=== PATIENT | female | born 1990 | race Caucasian/White ===

== ENCOUNTER → 2024-02-16 10:57 | Outpatient (CLI) | payer OTHER, SELFPAY ==
[2024-02-16 13:03] LABS: Hematocrit 30.7 % (36-46); Hemoglobin 10.6 g/dL (12.0-16.0)
[2024-02-16 13:43] LABS: GTT (PREG) 1 Hour PP 50gm Dose 136 mg/dL (76-139)
== END ==
PROVIDERS: PCP Nurse Practitioner Family; Referring Provider Obstetrics & Gynecology; Visit Provider Obstetrics & Gynecology
DX: Z34.02 Encounter for supervision of normal first pregnancy, second trimester (principal)
CPT/HCPCS: 36415; 82950; 85014; 85018

== ENCOUNTER 2024-02-23 13:41 | Observation (INO) | payer OTHER, SELFPAY ==
--- NOTE | 2024-02-23 14:33 | DI.US.S_ITS ---
PROCEDURE: US ABDOMEN LIMITED INDICATIONS: Gallbladder TECHNIQUE: Real-time focused scanning was performed of the abdomen, with image documentation. COMPARISON: None. FINDINGS: The gallbladder is normal without stones, sludge, wall thickening, or pericholecystic fluid. The visible portion of the liver, biliary tree, and pancreas are normal. Incidental note of intrauterine with heart rate of 147 beats per minute. IMPRESSION: Normal gallbladder. Dictated by: Octavia Gaines M.D. on 02/23/2024 at 18:27 Approved by: Octavia Gaines M.D. on 02/23/2024 at 18:28
[2024-02-23 15:04] LABS: Add Manual Diff / Slide Review NO; Basophils Absolute Auto 0 /uL (0-100); Basophils Percent Auto 0.2 % (0-2); Eosinophils Absolute Auto 0 /uL (0-450); Eosinophils Percent Auto 0.4 % (2-4); Hematocrit 32.9 % (36-46); Hemoglobin 11.6 g/dL (12.0-16.0); Lymphocytes Absolute Auto 600 /uL (1100-4500); Mean Corpuscular HGB Conc 35.2 % (30-36); Mean Corpuscular Hemoglobin 31.3 PG (26-34); Mean Corpuscular Volume 88.8 fL (80-100); Monocytes Absolute Auto 700 /uL (0-900); Monocytes Percent Auto 7.3 % (3-14); Neutrophils Absolute Auto 7900 /uL (1500-7000); Neutrophils Percent Auto 86.1 % (50-75); Platelet Count 288 X10^3/uL (150-400); Red Cell Distribution Width 13.6 % (11.6-14.8); White Blood Cell Count 9.2 X10^3/uL (4.5-11.0)
[2024-02-23 15:19] LABS: Alanine Aminotransferase 45 IU/L (<35); Albumin 3.8 g/dL (3.5-5.0); Albumin Globulin Ratio 1.2 (1.0-2.8); Alkaline Phosphatase 110 U/L (38-126); Aspartate Aminotransferase 36 IU/L (14-36); BUN Creatinine Ratio 10.6 (6-22); Bilirubin Total 0.8 mg/dL (0.2-1.3); Blood Urea Nitrogen 5 mg/dL (7-17); Calcium 8.4 mg/dL (8.4-10.2); Carbon Dioxide 23 mmol/L (22-32); Chloride 107 mmol/L (98-107); Estimated Glomerular Filt Rate > 60 mL/min (>60); Globulin 3.2 g/dL (1.7-4.1); Glucose 90 mg/dL (70-100); HEMOLYSIS < 15 (0-50); Potassium 3.6 mmol/L (3.4-5.1); Sodium 137 mmol/L (137-145)
[2024-02-23 15:23] LABS: Creatinine Urine Random 100.85 mg/dL; Protein (Total) Urine Random 12 mg/dL (0-12); Protein Creatinine Ratio Urine 0.11 GRAM/24H
[2024-02-23] MEDS: LACTATED RINGERS 1,000 ML 1000 ML IV (17:04)
== END 2024-02-23 18:15 | disposition home or self-care (01) ==
PROVIDERS: Admitting Provider Obstetrics & Gynecology; PCP Nurse Practitioner Family; Referring Provider Obstetrics & Gynecology; Visit Provider Obstetrics & Gynecology
DX: O26.853 Spotting complicating pregnancy, third trimester (principal); O26.893 Other specified pregnancy related conditions, third trimester; R10.11 Right upper quadrant pain; Z3A.29 29 weeks gestation of pregnancy
CPT/HCPCS: 59025; 59050; 76705; 80053; 82570; 84156; 85025; 96360; G0378; G0379

== ENCOUNTER 2024-02-25 17:03 | Observation (INO) | payer OTHER, SELFPAY ==
[2024-02-25 17:41] LABS: Add Manual Diff / Slide Review NO; Basophils Absolute Auto 0 /uL (0-100); Basophils Percent Auto 0.5 % (0-2); Eosinophils Absolute Auto 100 /uL (0-450); Eosinophils Percent Auto 0.8 % (2-4); Hemoglobin 11.1 g/dL (12.0-16.0); Lymphocytes Absolute Auto 1200 /uL (1100-4500); Mean Corpuscular HGB Conc 34.9 % (30-36); Mean Corpuscular Hemoglobin 31.4 PG (26-34); Mean Corpuscular Volume 90.1 fL (80-100); Monocytes Absolute Auto 700 /uL (0-900); Monocytes Percent Auto 9.3 % (3-14); Neutrophils Absolute Auto 5600 /uL (1500-7000); Neutrophils Percent Auto 73.4 % (50-75); Platelet Count 293 X10^3/uL (150-400); Red Blood Cell Count 3.55 X10^6/uL (4.0-5.2); Red Cell Distribution Width 13.3 % (11.6-14.8); White Blood Cell Count 7.6 X10^3/uL (4.5-11.0)
[2024-02-25 17:44] LABS: Alanine Aminotransferase 59 IU/L (<35); Albumin 3.8 g/dL (3.5-5.0); Albumin Globulin Ratio 1.1 (1.0-2.8); Alkaline Phosphatase 109 U/L (38-126); Aspartate Aminotransferase 43 IU/L (14-36); BUN Creatinine Ratio 13.3 (6-22); Bilirubin Total 0.6 mg/dL (0.2-1.3); Blood Urea Nitrogen 6 mg/dL (7-17); Calcium 8.9 mg/dL (8.4-10.2); Carbon Dioxide 24 mmol/L (22-32); Chloride 108 mmol/L (98-107); Estimated Glomerular Filt Rate > 60 mL/min (>60); Globulin 3.5 g/dL (1.7-4.1); Glucose 80 mg/dL (70-100); HEMOLYSIS < 15 (0-50); Potassium 3.7 mmol/L (3.4-5.1); Sodium 135 mmol/L (137-145); Total Protein 7.3 g/dL (6.3-8.2)
[2024-02-25] MEDS: BETAMETHASONE 30 MG/5 ML MDV 12 MG IM (18:36)
--- NOTE | 2024-02-25 18:43 | PM.OBTRLD ---
Visit Information Visit Information Date of evaluation: 02/25/24 Primary OB Provider: Mirlande Morton On-call OB Provider: Mirlande Morton Reason for Evaluation: Yes pre-term labor Comments/Additional reasons for admission: 33yo G1 at 29w3d D=9wk US presents to triage for evaluation of persistent vaginal spotting with increasing lower abdominal cramping Patient was last seen in triage on 02/22 for evaluation of RUQ pain thought at that time to be related to cholestasis. Noted isolated elevation in ALT (45) however all other labs returned wnl. RUQ at that time without evidence of cholelithiasis however + sonographic Castillo's sign. Provider was not informed of c/o vaginal bleeding at time of this encounter and patient was discharged to home with strict precautions. Pt secondarily called on-call provider 02/23 with c/o passage of a single large dark brown clot post-void, no further cramping. Pt instructed to monitor closely, FKC and call if any additional spotting or concerns. Pt contacted on-call provider this afternoon with c/o increasing vaginal discharge and persistent vaginal spotting that started immediately prior to calling, worsening lower pelvic bathroom type cramps. Pt was instructed to present to L&D triage for interval re-evaluation. On arrival pt NAD, cat 1 tracing however noted regular contractions q3min per tocometry. Repeat PIH labs obtained and IVF hydration initiated. On MD bedside transabdominal US ntoed zaman fetus in cephalic presentation, MVP 4.8cm. Possible echoic shadowing of lateral anterior placental edge however limited interpretation. Character of amniotic fluid simple without echogenic debris. Excellent movement and tone noted throughout. Sterile speculum exam significant for prolapsed membranes, 2cm visually dilated without evidence of PPROM. Interval PIH labs significant for progressive elevation in LFTs however still less than 2x normal Vital Signs Vital Signs: BP 108/83 HR 85 PFSH Medical History (Updated 02/25/24 @ 19:39 by Mirlande Morton MD) Transaminitis labor Chronic constipation Infertility Normal colonoscopy Surgical History (Updated 01/16/24 @ 09:42 by Ashley Bishop, RN) History of laparoscopy History of oral surgery Family History (Updated 01/16/24 @ 09:48 by Ashley Bishop, RN) Grandmother Diabetes mellitus Hypertension Hyperlipidemia Grandfather Alcoholism Father Adopted Grandmother Parkinson's disease Benign brain tumor Mother Thyroid disorder Father Prostate cancer Esophageal cancer Skin cancer Aunt Pre-diabetes Aunt Anemia Family/Other Rheumatoid arthritis Social History marital status: number of children: 1 (adopted son) household members: spouse and children lives independently: Yes caregiver/support person: Yes housing: house pets and animals: Yes (dogs) education level: college (bachelor's degree) occupational status: employed (works from home) current occupational exposures/hazards: No special amadou needs: No travel history: recent (domestic only) seatbelt use: always helmet use: No (counseled to do so in future) water heater temp set < 120 deg: Yes working smoke detector in home: Yes fire extinguisher in home: Yes carbon monox detector in home: Yes firearms in home: Yes firearms unloaded and locked: Yes do you feel safe at home: Yes Smoking Status: Never smoker second hand exposure: No alcohol intake: former (0-1/week when not ) substance use type: does not use during the past year weight has: remained stable well-balanced diet: daily or most days daily servings fruits/ve or more times/day caffeine: Yes (1 cup decaf or regular coffee in AM) Type(s) of exercise: walking frequency: 5-6 times per week Review of Systems Review of Systems ROS: Yes All systems reviewed with the patient and are negative except as otherwise documented Exam Vital Signs (past 8 hours): 138/78 HR 92 Const General: cooperative and well developed Nutritional Appearance: average body habitus Orientation: alert, awake and oriented x3 HENMT Head: normal to inspection Eyes General: appearance normal, both eyes and all related structures Resp Effort & Inspection: normal respiratory effort Auscultation: clear to auscultation bilaterally Cardio Rate: regular rate Pulses: normal peripheral pulses GI Other: gravid abdomen, size approx dates mild TTP RUQ without guarding or rebound, equivocal Castillo Other: normal external female genitalia perineum and anus without rash or lesion urethral meatus wnl vaginal vault grossly wnl without evidence of pooling cervix visually dilated 2cm, prolapsing membranes noted Skin General: no rashes or lesions noted Neuro General: patient alert, patient awake and patient oriented x3 Extrem General: normal to inspection Psych Appearance: grossly normal Mental Status: mental status grossly normal Speech and Movement: speech and movement normal Judgment: judgment good Objective Labs 02/25/24 17:25 02/25/24 17:25 Labs: Laboratory Results - last 24 hr 02/25/24 17:25 WBC 7.6 RBC 3.55 L Hgb 11.1 L Hct 32.0 L MCV 90.1 MCH 31.4 MCHC 34.9 RDW 13.3 Plt Count 293 Neut % (Auto) 73.4 Lymph % (Auto) 16.0 L [place] % (Auto) 9.3 Eos % (Auto) 0.8 L Baso % (Auto) 0.5 Neut # (Auto) 5600 Lymph # (Auto) 1200 [place] # (Auto) 700 Eos # (Auto) 100 Baso # (Auto) 0 Sodium 135 L Potassium 3.7 Chloride 108 H Carbon Dioxide 24 BUN 6 L Creatinine 0.45 L Estimated GFR > 60 BUN/Creatinine Ratio 13.3 Glucose 80 Calcium 8.9 Total Bilirubin 0.6 AST 43 H ALT 59 H Alkaline Phosphatase 109 Total Protein 7.3 Albumin 3.8 Globulin 3.5 Albumin/Globulin Ratio 1.1 Evaluation Evaluation Baseline heart rate: 135 Variability: Average (6-10) monitor accelerations: Present Monitor Decelerations: Absent Contraction Frequency (minutes): 5 Uterine Contraction Intensity: Moderate Category of Tracing: Reactive Status: Category l Cervical dilation (cm): 2 Non-invasive Membranes Rupture Test: negative Diagnosis, Plan/Disposition Final Diagnosis (1) labor: Status: Acute (2) Transaminitis: Status: Acute Plan/Disposition Plan: 33yo G1 at 29w3d d=9wk US presents in early labor, mild transaminitis concerning for developing HELLP syndrome Early labor cat 1 tracing, exam inconsistent with PPROM/abruption however visually dilated with prolapsing membranes start magnesium 6g loading dose +2g/h thereafter for both neuroprotection and transportation to[place]ysis ampicillin 2g now BMZ x1 given transfer to tertiary care center initiated Transaminitis NOS, concern for developing HELLP syndrome in setting of worsening RUQ pain, unable to exclude developing HELLP continue to monitor Dispo: pt accepted for transfer to tertiary center ([facility], Dr. Della Colbert), plan for ACLS air-transfer given clinical acuity OB Disposition: tertiary care transfer ([facility])
[2024-02-25] MEDS: LACTATED RINGERS 1,000 ML 1000 ML IV (19:13)
[2024-02-25] MEDS: MAGNESIUM SULFATE 4 GM/100 ML PIGGYBACK IV (19:14)
[2024-02-25] MEDS: AMPICILLIN 2,000 MG in SODIUM CHLORIDE 0.9% 100 ML 200 MG IV (19:15)
[2024-02-25] MEDS: MAGNESIUM SULFATE 2 GM/50 ML PIGGYBACK IV (19:29)
[2024-02-25] MEDS: MAGNESIUM SULFATE 20 GM/500 ML IV.SOLN IV (19:40)
[2024-02-25 21:09] LABS: Strep Grp B PCR NEG for Grp B Strep
== END 2024-02-25 20:32 | disposition home or self-care (01) ==
PROVIDERS: Admitting Provider Obstetrics & Gynecology; PCP Nurse Practitioner Family; Referring Provider Obstetrics & Gynecology; Visit Provider Obstetrics & Gynecology
DX: O60.03 Preterm labor without delivery, third trimester (principal); O26.893 Other specified pregnancy related conditions, third trimester; R74.01 Elevation of levels of liver transaminase levels; Z3A.29 29 weeks gestation of pregnancy
CPT/HCPCS: 36415; 59025; 59050; 76815; 80053; 85025; 87653; 96360; 96361; 96372; G0378; G0379; J0290; J0702; J3475

== ENCOUNTER → 2024-03-05 09:07 | Outpatient (CLI) | payer OTHER, SELFPAY ==
[2024-03-05 09:53] LABS: Add Manual Diff / Slide Review NO; Basophils Absolute Auto 0 /uL (0-100); Basophils Percent Auto 0.4 % (0-2); Eosinophils Absolute Auto 100 /uL (0-450); Eosinophils Percent Auto 0.5 % (2-4); Hematocrit 32.6 % (36-46); Hemoglobin 11.4 g/dL (12.0-16.0); Lymphocytes Absolute Auto 1500 /uL (1100-4500); Lymphocytes Percent Auto 14.6 % (25-40); Mean Corpuscular HGB Conc 35.1 % (30-36); Mean Corpuscular Hemoglobin 31.2 PG (26-34); Mean Corpuscular Volume 88.8 fL (80-100); Monocytes Absolute Auto 900 /uL (0-900); Monocytes Percent Auto 8.9 % (3-14); Neutrophils Absolute Auto 7800 /uL (1500-7000); Neutrophils Percent Auto 75.6 % (50-75); Platelet Count 361 X10^3/uL (150-400); Red Blood Cell Count 3.67 X10^6/uL (4.0-5.2); Red Cell Distribution Width 13.4 % (11.6-14.8); White Blood Cell Count 10.4 X10^3/uL (4.5-11.0)
[2024-03-05 10:21] LABS: Alanine Aminotransferase 28 IU/L (<35); Albumin 3.7 g/dL (3.5-5.0); Albumin Globulin Ratio 1.1 (1.0-2.8); Alkaline Phosphatase 105 U/L (38-126); Aspartate Aminotransferase 18 IU/L (14-36); BUN Creatinine Ratio 19.6 (6-22); Bilirubin Total 0.4 mg/dL (0.2-1.3); Blood Urea Nitrogen 9 mg/dL (7-17); Calcium 9.2 mg/dL (8.4-10.2); Carbon Dioxide 25 mmol/L (22-32); Chloride 106 mmol/L (98-107); Estimated Glomerular Filt Rate > 60 mL/min (>60); Globulin 3.4 g/dL (1.7-4.1); Glucose 98 mg/dL (70-100); HEMOLYSIS < 15 (0-50); Potassium 4.4 mmol/L (3.4-5.1); Sodium 135 mmol/L (137-145); Total Protein 7.1 g/dL (6.3-8.2)
== END ==
PROVIDERS: PCP Nurse Practitioner Family; Referring Provider Obstetrics & Gynecology; Visit Provider Obstetrics & Gynecology
DX: R74.01 Elevation of levels of liver transaminase levels (principal)
CPT/HCPCS: 36415; 80053; 85025

== ENCOUNTER 2024-04-06 00:25 | Inpatient (IN) | payer OTHER, SELFPAY ==
[2024-04-06 02:22] LABS: Alanine Aminotransferase 13 IU/L (<35); Albumin 3.6 g/dL (3.5-5.0); Alkaline Phosphatase 167 U/L (38-126); Aspartate Aminotransferase 21 IU/L (14-36); BUN Creatinine Ratio 11.6 (6-22); Bilirubin Total 0.5 mg/dL (0.2-1.3); Blood Urea Nitrogen 5 mg/dL (7-17); Calcium 8.9 mg/dL (8.4-10.2); Carbon Dioxide 20 mmol/L (22-32); Chloride 110 mmol/L (98-107); Estimated Glomerular Filt Rate > 60 mL/min (>60); Globulin 3.6 g/dL (1.7-4.1); Glucose 92 mg/dL (70-100); HEMOLYSIS < 15 (0-50); Potassium 3.7 mmol/L (3.4-5.1); Sodium 135 mmol/L (137-145); Total Protein 7.2 g/dL (6.3-8.2)
[2024-04-06 02:28] LABS: Add Manual Diff / Slide Review NO; Basophils Absolute Auto 0 /uL (0-100); Basophils Percent Auto 0.4 % (0-2); Eosinophils Absolute Auto 0 /uL (0-450); Eosinophils Percent Auto 0.4 % (2-4); Hematocrit 33.1 % (36-46); Hemoglobin 11.3 g/dL (12.0-16.0); Lymphocytes Absolute Auto 1600 /uL (1100-4500); Lymphocytes Percent Auto 14.9 % (25-40); Mean Corpuscular HGB Conc 34.3 % (30-36); Mean Corpuscular Hemoglobin 30.4 PG (26-34); Mean Corpuscular Volume 88.6 fL (80-100); Monocytes Absolute Auto 900 /uL (0-900); Monocytes Percent Auto 7.9 % (3-14); Neutrophils Absolute Auto 8200 /uL (1500-7000); Neutrophils Percent Auto 76.4 % (50-75); Platelet Count 266 X10^3/uL (150-400); Red Blood Cell Count 3.73 X10^6/uL (4.0-5.2); Red Cell Distribution Width 13.3 % (11.6-14.8); White Blood Cell Count 10.8 X10^3/uL (4.5-11.0)
[2024-04-06] MEDS: CALCIUM CARBONATE 500 MG TAB 1000 MG PO (03:34)
[2024-04-06] MEDS: LIDOCAINE 1% 20 ML (06:45)
[2024-04-06] MEDS: LIDOCAINE 1% 20 ML INJ (07:00)
--- NOTE | 2024-04-06 07:27 | P.HPOB_ITS ---
OB HPI Date/Time Date of admission: 04/06/24 Date Patient Seen: 04/06/24 Time Patient Seen: 06:30 History of Present Condition Chief complaint: : 1 Para: 0 Estimated Date of Delivery: 05/09/24 Estimated Gestational Age (weeks): 35+2 Narrative: Criss Flores is a 34 year primigravida admitted now at 35+ 2 weeks gestational age with spontaneous rupture membranes at about 2300 on the evening 04/05/2024. Fluid was clear and SROM was confirmed with [facility] upon presentation to the center. Patient's course has been complicated by an episode of premature contractions early cervical changes occurring at about 29 weeks gestational age. She received a single dose of IM betamethasone and was transferred to [facility] and discharged after 48 hours of observation/treatment. Dates are solid and milestones appropriate throughout. GBS is negative. Following presentation to the center, pediatrics was consulted to be certain they were comfortable with delivery of this premature infant History of Present care: good care Dating criteria: LMP confirmed by 1st trimester US Ultrasounds: normal 1st trimester US and normal mid trimester US Obstetrical complications: other (PPROM) Preadmission Labs Blood type: O (+) positive -: Antibody screen: negative, GBS status: negative, HBsAG: negative, HIV: negative and RPR/VDLR: negative -: Chlamydia screen: not detected and Gonorrhea screen: not detected -: Rubella: immune and Varicella: immune HCT: 33.1 HCAB: negative PAP: Normal Quad screen: Normal ( AFP testing negative) 1 hr GTT: 136 Prior (ies) History: primigravida Evaluation Evaluation Baseline heart rate: 145 Variability: Moderate (11-25) monitor accelerations: Present Monitor Decelerations: Absent Contraction Frequency (minutes): 5 Uterine Contraction Intensity: Mild Category of Tracing: Reactive Status: Category l Dilation (cm): 2 Effacement (%): 80 Dilation: 1-2 cm Effacement: >/=80% station: 0 Position of cervix: mid Consistency: soft Hinton score: 9 Non-invasive Membranes Rupture Test: positive [facility] Medical History (Updated 03/15/24 @ 12:21 by Abdi Welch MD) Chicken pox Painful menstrual periods Migraine with aura Transaminitis labor Chronic constipation Infertility Normal colonoscopy Surgical History (Updated 03/02/24 @ 18:57 by Quita Snell) Anesthesia History of colonoscopy (~2017) S/P nerve repair History of laparoscopy (~03/2021) History of oral surgery Family History (Updated 03/02/24 @ 18:59 by Quita Snell) Grandmother Diabetes mellitus Hypertension Hyperlipidemia History of heart disease Kidney failure Grandfather Alcoholism Father Adopted Cancer Grandmother Parkinson's disease Benign brain tumor Mother Thyroid disorder Father Prostate cancer Esophageal cancer Skin cancer Aunt Pre-diabetes Aunt Anemia Family/Other Rheumatoid arthritis Social History marital status: number of children: 1 (adopted son) household members: spouse and children lives independently: Yes caregiver/support person: Yes housing: house pets and animals: Yes (dogs) education level: college (bachelor's degree) occupational status: employed (works from home) current occupational exposures/hazards: No special amadou needs: No travel history: recent (domestic only) seatbelt use: always helmet use: No (counseled to do so in future) water heater temp set < 120 deg: Yes working smoke detector in home: Yes fire extinguisher in home: Yes carbon monox detector in home: Yes firearms in home: Yes firearms unloaded and locked: Yes do you feel safe at home: Yes Smoking Status: Never smoker second hand exposure: No alcohol intake: former (0-1/week when not ) substance use type: does not use during the past year weight has: remained stable well-balanced diet: daily or most days daily servings fruits/ve or more times/day caffeine: Yes (1 cup decaf or regular coffee in AM) Type(s) of exercise: walking frequency: 5-6 times per week Meds Home Medications and Allergies Home Medications Medication Instructions Recorded Confirmed Type docusate sodium 100 mg capsule 100 mg PO DAILY 01/16/24 04/03/24 History vitamin-ferrous sulfate tab PO 01/16/24 04/03/24 History 27 mg iron-folic acid 0.8 mg tablet nystatin 100,000 unit/gram topical 1 applic topical BID #30 grams 01/26/24 04/03/24 Rx ointment breast pump #1 ea 02/16/24 04/03/24 Rx sennosides 8.6 mg tablet (senna) 8.6 mg PO BEDTIME PRN constipation 03/18/24 04/03/24 Rx #60 tabs Allergies Allergy/AdvReac Type Severity Reaction Status Date / Time nickel Allergy Mild Rash Verified 04/03/24 14:58 onion AdvReac Mild Abdominal Verified 04/03/24 14:58 Pain Review of Systems Review of Systems Narrative: Problem-specific ROS positives included in HPI OB Exam Vital signs Blood Pressure: 123/79 Pulse Rate: 82 Temperature: 97.2 F HENMT Head: normal to inspection, normocephalic and atraumatic Eyes General: appearance normal, both eyes and all related structures Resp Effort & Inspection: normal respiratory effort and able to speak in complete sentences Auscultation: clear to auscultation bilaterally Cardio Rate: regular rate Rhythm: regular rhythm Heart Sounds: S1 normal, S2 normal and no murmurs Extremities Lower extremity: Yes normal to inspection GI Inspection: normal to inspection Palpation: Yes soft and Yes no hepatosplenomegaly Uterus Location (Fundal Height): 35 Presentation: vertex Estimated Weight (lbs): 6 Amniotic Fluid: clear Objective Labs 04/06/24 01:40 04/06/24 01:40 Labs: Laboratory Results - last 24 hr 04/06/24 01:40 WBC 10.8 RBC 3.73 L Hgb 11.3 L Hct 33.1 L MCV 88.6 MCH 30.4 MCHC 34.3 RDW 13.3 Plt Count 266 Neut % (Auto) 76.4 H Lymph % (Auto) 14.9 L [place] % (Auto) 7.9 Eos % (Auto) 0.4 L Baso % (Auto) 0.4 Neut # (Auto) 8200 H Lymph # (Auto) 1600 [place] # (Auto) 900 Eos # (Auto) 0 Baso # (Auto) 0 Sodium 135 L Potassium 3.7 Chloride 110 H Carbon Dioxide 20 L BUN 5 L Creatinine 0.43 L Estimated GFR > 60 BUN/Creatinine Ratio 11.6 Glucose 92 Calcium 8.9 Total Bilirubin 0.5 AST 21 ALT 13 Alkaline Phosphatase 167 H Total Protein 7.2 Albumin 3.6 Globulin 3.6 Albumin/Globulin Ratio 1.0 Blood Type O Positive Antibody Screen Negative Assessment and Plan Assessment and Plan Assessment and Plan narrative: ASSESSMENT 1. Intrauterine , 35+2 weeks gestational age 2. PPROM 3. GBS negative status PLAN 1. Admit for labor and delivery 2. See admission orders Time-Based Coding :: [TOTAL MINUTES] spent with patient and on the chart (including review of chart, obtaining history, exam, reviewing outside data, placing orders, documenting exam and treatment plan, and counseling patient) on [DATE].
[2024-04-06 07:44] VITALS: BP 123/79; PULSE 82; TEMP 36.2
--- NOTE | 2024-04-06 07:44 | P.PCNOB_ITS ---
Events: Labor < 37 wks and Premature Rupture Membrane Labor & Delivery Delivery date: 04/06/24 Intrapartal Events: None Cervical ripening method: none Induction method: none Delivery monitor: external FHT and external uterine Route of delivery: Episiotomy description: None L&D Laceration Description: Perineal - 2nd Degree and Labial (First-degree, left) Delivery repair: chromic (2-0 and 3-0) Estimated blood loss (mL): 150 Anesthesia Type: Local and Other (Nitrous oxide) Complications: None Narrative: Following a 16 minute 2nd stage, the patient delivered spontaneously over an intact perineum viable and vigorous female infant from the left occiput anterior position. No cord entanglement or shoulder dystocia was encountered. Skin to skin contact was initiated immediately and delayed cord clamping performed. Once the umbilical cord was doubly clamped and cut, specimen of cord blood was obtained for routine studies. Delivery of the placenta was accomplished with gentle cord traction and suprapubic countertraction. Intravenous Pitocin was initiated immediately upon delivery of the placenta and bleeding was minimized quickly. Careful inspection of the placenta showed it to be intact with a centrally inserting three-vessel umbilical cord. Inspection of the perineum showed a superficial left labial laceration along with a second- degree perineal laceration. Both repaired with chromic catgut suture under local anesthetic with 1% plain lidocaine. Sponge, sharps, and instrument counts were correct at the completion of the delivery process which was well tolerated by both mother and baby. Baby 1: Infant gender: Female Presentation: vertex Position: Left Occiput Anterior Placenta delivery description: Spontaneous Cord Vessel Description: 3 Vessels score (1 min): 7 score (5 min): 9 weight: 6 lb 4.531 oz Plan for aftercare: Routine care
[2024-04-06] MEDS: OXYTOCIN PREMIX 30 UNIT/500 ML PLAST..BAG 200 UNIT IV (08:01)
[2024-04-06] MEDS: IBUPROFEN 600 MG TABLET PO ×3 (09:11→21:07)
[2024-04-06] MEDS: ACETAMINOPHEN 325 MG TABLET 650 MG PO ×3 (09:12→21:07)
[2024-04-06 09:13] VITALS: PULSE 163; RESP 30; O2SAT 93
[2024-04-06] MEDS: LANOLIN OINT 7 GM 1 APPLIC TOP (12:07)
[2024-04-06] MEDS: WITCH HAZEL/GLYCERIN PADS 1 EACH TOP (12:07)
[2024-04-06] MEDS: DOCUSATE 100 MG CAPSULE PO (21:07)
[2024-04-07] MEDS: ACETAMINOPHEN 325 MG TABLET 650 MG PO ×2 (03:15→08:50)
[2024-04-07] MEDS: IBUPROFEN 600 MG TABLET PO ×4 (03:15→23:02)
[2024-04-07 05:40] LABS: Add Manual Diff / Slide Review NO; Basophils Absolute Auto 0 /uL (0-100); Basophils Percent Auto 0.3 % (0-2); Eosinophils Absolute Auto 0 /uL (0-450); Eosinophils Percent Auto 0.3 % (2-4); Hematocrit 29.9 % (36-46); Hemoglobin 10.2 g/dL (12.0-16.0); Lymphocytes Absolute Auto 1900 /uL (1100-4500); Lymphocytes Percent Auto 14.6 % (25-40); Mean Corpuscular HGB Conc 33.9 % (30-36); Mean Corpuscular Hemoglobin 30.2 PG (26-34); Mean Corpuscular Volume 88.9 fL (80-100); Monocytes Absolute Auto 1100 /uL (0-900); Monocytes Percent Auto 8.4 % (3-14); Neutrophils Absolute Auto 9700 /uL (1500-7000); Neutrophils Percent Auto 76.4 % (50-75); Platelet Count 265 X10^3/uL (150-400); Red Blood Cell Count 3.36 X10^6/uL (4.0-5.2); Red Cell Distribution Width 13.4 % (11.6-14.8); White Blood Cell Count 12.6 X10^3/uL (4.5-11.0)
[2024-04-07] MEDS: DOCUSATE 100 MG CAPSULE PO (08:50)
--- NOTE | 2024-04-07 11:04 | PM.OBPN.1 ---
Subjective - OB Subjective Patient comments: no complaints, pain well controlled and flatus present baby status: doing well and nursing well Sullivan feeding status: exclusively breast feeding Narrative: Mother and baby doing well PPD1. Minimal perineal discomfort, lochia light. Date Patient Seen: 04/07/24 Time Patient Seen: 11:05 Exam Const General: cooperative and comfortable Nutritional Appearance: average body habitus Orientation: alert and oriented x3 HENMT Head: normal to inspection, normocephalic and atraumatic Ears: hearing grossly normal bilaterally Face and sinus: face symmetric Eyes General: appearance normal, both eyes and all related structures Conjunctivae: conjunctivae normal Sclera: sclerae normal EOM: EOM intact bilaterally Neck Neck: normal visual inspection Resp Effort & Inspection: normal respiratory effort and able to speak in complete sentences External Female Exam: other (Minimal bleeding noted. Laceration repairs intact.) Psych Appearance: grossly normal Mental Status: mental status grossly normal Speech and Movement: speech and movement normal Mood: congruent mood Affect: normal affect Attitude: cooperative Thought Process: normal Thought Content: normal Judgment: judgment good Objective Labs 04/07/24 05:30 04/06/24 01:40 Labs: Laboratory Results - last 24 hr 04/07/24 05:30 WBC 12.6 H RBC 3.36 L Hgb 10.2 L Hct 29.9 L MCV 88.9 MCH 30.2 MCHC 33.9 RDW 13.4 Plt Count 265 Neut % (Auto) 76.4 H Lymph % (Auto) 14.6 L [place] % (Auto) 8.4 Eos % (Auto) 0.3 L Baso % (Auto) 0.3 Neut # (Auto) 9700 H Lymph # (Auto) 1900 [place] # (Auto) 1100 H Eos # (Auto) 0 Baso # (Auto) 0 Assessment & Plan Plan day: 1 plan OB: routine care Comments: Infant will remain another 24 hrs. due to prematurity but anticipate DC in AM. Time-Based Coding :: [TOTAL MINUTES] spent with patient and on the chart (including review of chart, obtaining history, exam, reviewing outside data, placing orders, documenting exam and treatment plan, and counseling patient) on [DATE].
[2024-04-08] MEDS: CALCIUM CARBONATE 500 MG TAB 1000 MG PO ×2 (00:06→10:50)
[2024-04-08] MEDS: IBUPROFEN 600 MG TABLET PO ×2 (04:59→10:50)
[2024-04-08] MEDS: DOCUSATE 100 MG CAPSULE PO (08:35)
--- NOTE | 2024-04-08 08:53 | PM.DS.1 ---
History of Present Illness History of Present Illness Date Patient Seen: 04/08/24 Time Patient Seen: 07:54 Chief complaint: OB Narrative: Pt resting in bed, pumping for breastmilk, in bassinet at bedside. States no acute complaints, looking forward to going home if cleared per peds Discharge Providers Provider Date of admission: 04/06/24 00:25 Discharge Date: 04/08/24 Primary care physician: BABITA Berman Consults: 04/06/24 01:44 Consult to Anesthesiology Urgent Comment: Consulting Provider: Anesthesiologist Reason for consultation: Epidural 04/07/24 07:22 Consult to Machine Shop Inspector Routine Comment: Discharge provider: Mirlande Morton MD Summary Hospital Course Discharge Diagnosis: s/p PTSVD of [facility] Hospital Course: Patient admitted to facility at 35w0d following PPROM at home [employer]. course c/b threatened PTL at 29wga necessitating transfer to tertiary center, arrest of PTL at 2cm and discharged to home with planned expectant management s/p BMZ. Remainder of PNC was uncomplicated aside from mild cholestasis that resolved with dietary changes. On admission pt had uncomplicated progression of dilation and a brief second stage with uncomplicated delivery of live born female . Uncomplicated course, appropriate for discharge to home today on PPD2 pending clearance per peds. Plan for 1 week telehealth mood check, routine 4-6wk in office. Pt counseled on recommendation for and declines initiation of immediate contraception at time of discharge. Status at Discharge Cognitive/behavioral status at discharge: oriented Functional status at discharge: independent ambulation Overall status at discharge: patient is back to baseline Time Spent with Patient Time spent: Less than 30 minutes Exam Vital Signs (past 8 hours): maternal vital signs reviewed in OBIX and wnl Const General: cooperative, healthy appearing and comfortable Resp Effort & Inspection: normal respiratory effort Cardio Pulses: normal peripheral pulses GI Inspection: normal to inspection Other: fundus firm << umb Other: deferred Skin General: no rashes or lesions noted Neuro General: patient alert, patient awake and patient oriented x3 Extrem General: normal to inspection Psych Mental Status: mental status grossly normal Judgment: judgment good Objective Labs 04/07/24 05:30 04/06/24 01:40 [facility] Medical History (Updated 03/15/24 @ 12:21 by Abdi Welch MD) Chicken pox Painful menstrual periods Migraine with aura Transaminitis labor Chronic constipation Infertility Normal colonoscopy Surgical History (Updated 03/02/24 @ 18:57 by Quita Snell) Anesthesia History of colonoscopy (~2017) S/P nerve repair History of laparoscopy (~03/2021) History of oral surgery Family History (Updated 03/02/24 @ 18:59 by Quita Snell) Grandmother Diabetes mellitus Hypertension Hyperlipidemia History of heart disease Kidney failure Grandfather Alcoholism Father Adopted Cancer Grandmother Parkinson's disease Benign brain tumor Mother Thyroid disorder Father Prostate cancer Esophageal cancer Skin cancer Aunt Pre-diabetes Aunt Anemia Family/Other Rheumatoid arthritis Social History marital status: number of children: 1 (adopted son) household members: spouse and children lives independently: Yes caregiver/support person: Yes housing: house pets and animals: Yes (dogs) education level: college (bachelor's degree) occupational status: employed (works from home) current occupational exposures/hazards: No special amadou needs: No travel history: recent (domestic only) seatbelt use: always helmet use: No (counseled to do so in future) water heater temp set < 120 deg: Yes working smoke detector in home: Yes fire extinguisher in home: Yes carbon monox detector in home: Yes firearms in home: Yes firearms unloaded and locked: Yes do you feel safe at home: Yes Smoking Status: Never smoker second hand exposure: No alcohol intake: former (0-1/week when not ) substance use type: does not use during the past year weight has: remained stable well-balanced diet: daily or most days daily servings fruits/ve or more times/day caffeine: Yes (1 cup decaf or regular coffee in AM) Type(s) of exercise: walking frequency: 5-6 times per week Discharge Assessment & Plan Assessment and Plan Assessment: 34yo PPD2 s/p PTSVD of [facility] routine care, fully advanced consult PRN, encouraged to access as outpatient if needed PNL as per admission documentation plan for 1 week telehealth mood check, routine 4-6wk f/u in office Discharge Plan Discharge Plan Patient Disposition: Home Provider Discharge Comment: Please review the written instructions you received when you were discharged from the hospital. Your follow-up appointment will be scheduled for 6 weeks after your delivery and we look forward to seeing you then. If however in the meanwhile you have any issues, concerns, or questions, please contact the office either by phone at [phone], or via the patient portal. Discharge orders & Medications Prescriptions: New acetaminophen 325 mg Tablet 650 mg PO Q6HR PRN (Reason: Pain, Mild (1-3)) Qty: 30 0RF ibuprofen 600 mg Tablet 600 mg PO Q6HR PRN (Reason: Pain, Mild (1-3)) Qty: 30 0RF Continued nystatin 100,000 unit/gram ointment 1 applic topical BID Qty: 30 2RF sennosides [senna] 8.6 mg tablet 8.6 mg PO BEDTIME PRN (Reason: constipation) Qty: 60 0RF vit-ferrous sulfat-FA 27 mg iron- 0.8 mg tablet See Rx Instructions .ROUTE .COMPLEX Rx Instructions: Take as directed docusate sodium 100 mg capsule 100 mg PO DAILY (DME) breast pump Device See Rx Instructions .Route Qty: 1 0RF Rx Instructions: double electric pump Follow up/Referrals: Cailin Abernathy, [employer] [Primary Care Provider] - Discharge Health Status Multidrug resistant organism: No MDRO Diet/Activity/Treatments Diet: Diet as Tolerated Activity: As tolerated Other treatments: [id number] Tylenol and/or ibuprofen may be used additional pain relief Skin/Wound/Dressing Care Report to your healthcare provider any signs of infection, such as:: chills, fever, increased pain, unusual drainage and unusual redness Dressing: N/A Visit Report/Discharge Packet Instructions: DI for Labor and Delivery, Vaginal , DI for and Nipple Soreness Discharge Data Primary Care Provider: Cailin Abernathy PROFEE Charge Codes Discharge inpatient/observation: 22945
[2024-04-08] MEDS: WITCH HAZEL/GLYCERIN PADS 1 EACH TOP (12:12)
== END 2024-04-08 13:01 | disposition home or self-care (01) | DRG 807 ==
PROVIDERS: Admitting Provider Obstetrics & Gynecology; PCP Nurse Practitioner Family; Referring Provider Obstetrics & Gynecology; Visit Provider Obstetrics & Gynecology
DX: O42.013 Preterm premature rupture of membranes, onset of labor within 24 hours of rupture, third trimester (principal); Z37.0 Single live birth; Z3A.35 35 weeks gestation of pregnancy; O70.1 Second degree perineal laceration during delivery; O70.0 First degree perineal laceration during delivery
CPT/HCPCS: 36415; 59050; 80053; 85025; 86850; 86900; 86901; G0379; J2590